=== PATIENT | female | born 1965 | race American Indian/Alaskan Native ===

== ENCOUNTER 2017-08-24 11:38 | Emergency (ER) | payer OTHER ==
[2017-08-24 11:49] VITALS: O2SAT 98
[2017-08-24 13:28] LABS: BASO % 0.2 % (0.0-2.0); EOS % 0.2 % (0.0-4.0); HEMATOCRIT 35.7 % (34.0-47.0); LYMPH # 0.4 K/uL (1.0-4.3); LYMPH % 9.8 % (20.0-40.0); MEAN CELL VOLUME 84.5 fL (81.0-99.0); MEAN CORPUSCULAR HEMOGLOBIN 27.6 pg (27.0-31.0); MEAN CORPUSCULAR HGB CONC 32.7 g/dL (33.0-37.0); MEAN PLATELET VOLUME 8.8 fL (7.2-11.7); MONO # 0.3 K/uL (0.0-0.8); MONO % 7.1 % (0.0-10.0); NRBC % 0.1 % (0.0-2.0); PLATELET COUNT 216 K/uL (130-400); RED CELL DISTRIBUTION WIDTH 13.2 % (11.5-14.5); WHITE BLOOD COUNT 4.4 K/uL (4.8-10.8)
[2017-08-24 13:43] LABS: ALKALINE PHOSPHATASE 71 U/L (38-126); ALT/SGPT 28 U/L (9-52); AST/SGOT 21 U/L (14-36); BILIRUBIN,TOTAL 0.7 mg/dL (0.2-1.3); BLOOD UREA NITROGEN 9 mg/dL (7-17); CALCIUM 8.5 mg/dl (8.6-10.4); CARBON DIOXIDE 26 mmol/L (22-30); CHLORIDE 100 mmol/L (98-107); GFR AFRICAN-AMERICAN > 60; GLUCOSE,RANDOM 63 mg/dL (65-105); POTASSIUM 3.6 mmol/L (3.6-5.2); SODIUM 133 mmol/L (132-148); TOTAL PROTEIN 8.4 g/dL (6.3-8.3)
[2017-08-24 13:51] LABS: NEUTROPHIL 79 % (50-75); TOTAL CELLS COUNTED 100
[2017-08-24 13:54] LABS: RBC URINE < 1 /hpf (0-3); URINE BACTERIA RARE (<OCC); URINE BILIRUBIN NEGATIVE (NEGATIVE); URINE BLOOD NEGATIVE (NEGATIVE); URINE COLOR Yellow (YELLOW); URINE GLUCOSE (UA) NORMAL (Normal); URINE KETONE NEGATIVE (NEGATIVE); URINE LEUKOCYTE ESTERASE TRACE Leu/uL (Negative); URINE PROTEIN NEGATIVE (NEGATIVE); URINE UROBILINOGEN NORMAL mg/dL (0.2-1.0); WBC URINE 3 /hpf (0-5)
--- NOTE | 2017-08-24 14:00 | C.PDOC ---
History Of Present Illness 52 y/o female with PMHx of Uterine Fibroid and Anemia presents to ED with complaints of abdominal pain since this morning. Patient notes she went to work and developed abdominal pain after drinking tea and eating papaya. Patient reports she had soft bowel movement but pain persisted. Reports history of similar symptoms when she had colitis. Patient reports nausea and denies vomiting, fever, chills or any other complaints at this time. Time Seen by Provider: 08/24/17 12:46 Chief Complaint (Nursing): Abdominal Pain History Per: Patient History/Exam Limitations: no limitations Onset/Duration Of Symptoms: Days Current Symptoms Are (Timing): Still Present Past Medical History Reviewed: Historical Data, Nursing Documentation, Vital Signs Vital Signs: Last Vital Signs Temp 98.2 F 08/24/17 18:07 Pulse 74 08/24/17 18:07 Resp 16 08/24/17 18:07 BP 114/68 08/24/17 18:07 Pulse Ox 98 08/24/17 18:07 - Medical History PMH: No Chronic Diseases Surgical History: No Surg Hx Family History: States: No Known Family Hx - Social History Hx Alcohol Use: Yes Hx Substance Use: No - Immunization History Hx Tetanus Toxoid Vaccination: Yes Hx Influenza Vaccination: No Hx Pneumococcal Vaccination: No Review Of Systems Constitutional: Negative for: Fever, Chills Gastrointestinal: Positive for: Nausea, Abdominal Pain. Negative for: Vomiting Musculoskeletal: Negative for: Back Pain Skin: Negative for: Rash Neurological: Negative for: Weakness, Numbness Physical Exam - Physical Exam Appears: Non-toxic, Other (uncomfortable) Skin: Normal Color, Warm, Dry, No Rash Head: Atraumatic, Normacephalic Eye(s): bilateral: Normal Inspection, EOMI Nose: Normal Oral Mucosa: Moist Neck: Supple Chest: Symmetrical Cardiovascular: Rhythm Regular Respiratory: Normal Breath Sounds, No Rales, No Rhonchi, No Wheezing Gastrointestinal/Abdominal: No Soft, Tenderness (Diffuse), Mass, Distention, No Guarding, No Rebound Back: No CVA Tenderness Neurological/Psych: Oriented x3 ED Course And Treatment - Laboratory Results Result Diagrams: 08/24/17 13:24 08/24/17 13:24 O2 Sat by Pulse Oximetry: 98 (RA) Pulse Ox Interpretation: Normal - Other Rad Obstructive series X-Ray: Viewed By Me, Read By Radiologist Interpretation: PROCEDURE: Radiographs of the chest and abdomen (obstructive series). HISTORY: Abdominal pain. COMPARISON: No prior. TECHNIQUE: AP radiograph of the chest, with upright and supine radiographs of the abdomen. FINDINGS: CHEST: Lungs: Clear. Cardiovascular: Normal size heart. No pulmonary vascular congestion. Pleura: No pleural fluid. No pneumothorax. Other findings: None. ABDOMEN AND PELVIS: Bowel: There is moderate amount of stool in the colon. No evidence of mechanical obstruction. Free air: None. Bones: Unremarkable. Other findings: None. IMPRESSION: Constipation. No evidence of mechanical bowel obstruction. Clear lungs. - CT Scan/US Abd/pelvis Other Rad Studies (CT/US): Read By Radiologist, Radiology Report Reviewed CT/US Interpretation: PROCEDURE: CT Abdomen and Pelvis with contrast. HISTORY : Abdominal pain. COMPARISON: None. TECHNIQUE: Contrast dose: 100 mL Omnipaque 350. Radiation dose: Total exam DLP = 569.12 mGy-cm. This CT exam was performed using one or more of the following dose reduction techniques: Automated exposure control, adjustment of the mA and/or kV according to patient size, and/or use of iterative reconstruction technique. FINDINGS: LOWER THORAX : The lung bases are clear. LIVER: The liver is normal in size and there is homogeneous enhancement. There are few scattered tiny low-attenuation lesions in the liver, too small to characterize by CT criteria. No intrahepatic biliary ductal dilatation. GALLBLADDER AND BILE DUCTS: There are no calcified gallstones. PANCREAS: The pancreas is normal in size and there is homogeneous enhancement without ductal dilatation or focal mass. SPLEEN: The spleen is normal in size and there is homogeneous enhancement. ADRENALS: No discrete nodule. KIDNEYS AND URETERS: Both kidneys are normal in size and there is homogeneous enhancement. There is a 6.1 x 4.4 cm simple cyst in the right kidney posteriorly. VASCULATURE: No aortic aneurysm. BOWEL: The small bowel loops are normal in caliber. There is moderate amount of stool scattered throughout the colon. No bowel obstruction. APPENDIX: Normal appendix. PERITONEUM: No free fluid. No free air. LYMPH NODES: No enlarged lymph nodes. BLADDER: Partially decompressed. REPRODUCTIVE: There is an anteverted enlarged fibroid uterus. There is a 10.8 x 13.8 x 20.5 cm hyperdense mass posterior to the uterus and anterior to the rectum resulting in mass effect on the posterior wall of the uterus and cervix. There is anterior displacement of the uterus and urinary bladder and posterior displacement of the rectum. BONES: No acute fracture. Within normal limits for the patient's age. OTHER FINDINGS: None. IMPRESSION: Large 10.8 x 13.8 x 20.5 cm pelvic mass extending to the lower abdomen between the uterus and rectum with resultant mass effect and anterior displacement of the uterus and cervix and posterior displacement of the rectum. Also noted is an enlarged fibroid uterus. The mass could represent a subserosal posterior wall degenerating fibroid however other pelvic masses including malignancy cannot be entirely excluded. Gynecologic consult is warranted. Progress Note: Toradol and Zofran ordered. CT scan abdomen ordered. On re- evaluation, patient is resting comfortably, abdomen remains soft, and patient is tolerating PO. Afebrile. Discussed with Dr Quijano, pts private surgeon, who reveiwed the results with pt and agreed upon discharge with outpt follow up. Case discussed and pt evaluated by Dr Stewart who evaluated results and discsused case with Dr Quijano, agreed upon plan and discharge. pt was instructed to return to ER if symptoms persist or worsen. Disposition - Disposition Disposition: HOME/ ROUTINE Disposition Time: 17:31 Condition: STABLE Additional Instructions: Follow up with your surgeon/ RESIDENTIAL [facility] doctor in 1-2 days. Return to ER if symptoms persist or worsen. Prescriptions: Psyllium Husk [Metamucil] 1.7 gm PO DAILY #1 powder traMADol [Ultram] 50 mg PO Q8 #14 tab Instructions: Uterine Fibroids (ED) Forms: [facility] (Divehi), Work Excuse - Clinical Impression Clinical Impression: Pelvic mass, Uterine fibroid - PA / FINISHING TRIMMER / Resident Statement MD/DO has reviewed & agrees with the documentation as recorded. - Scribe Statement The provider has reviewed the documentation as recorded by the Mohinder Valerio All medical record entries made by the Mohinder were at my direction and personally dictated by me. I have reviewed the chart and agree that the record accurately reflects my personal performance of the history, physical exam, medical decision making, and the department course for this patient. I have also personally directed, reviewed, and agree with the discharge instructions and disposition.
--- NOTE | 2017-08-24 14:22 | RAD ---
PROCEDURE: Radiographs of the chest and abdomen (obstructive series) HISTORY: Abdominal pain COMPARISON: No prior. TECHNIQUE: AP radiograph of the chest, with upright and supine radiographs of the abdomen. FINDINGS: CHEST: Lungs: Clear. Cardiovascular: Normal size heart. No pulmonary vascular congestion. Pleura: No pleural fluid. No pneumothorax. Other findings: None. ABDOMEN AND PELVIS: Bowel: There is moderate amount of stool in the colon. No evidence of mechanical obstruction. Free air: None. Bones: Unremarkable. Other findings: None. IMPRESSION: Constipation. No evidence of mechanical bowel obstruction. Clear lungs.
[2017-08-24] MEDS ORDERED: Dextrose 50% VIAL Inj (50 ml) IV ONE (14:30)
[2017-08-24] MEDS ORDERED: Dextrose 5%/0.9% NS 1,000 ML IV SCH (14:30)
[2017-08-24] MEDS ORDERED: Iohexol 350mg/ml 100 ML ONE (15:08)
--- NOTE | 2017-08-24 16:47 | CT ---
PROCEDURE: CT Abdomen and Pelvis with contrast HISTORY: Abdominal pain COMPARISON: None. TECHNIQUE: Contrast dose: 100 mL Omnipaque 350 Radiation dose: Total exam DLP = 569.12 mGy-cm. This CT exam was performed using one or more of the following dose reduction techniques: Automated exposure control, adjustment of the mA and/or kV according to patient size, and/or use of iterative reconstruction technique. FINDINGS: LOWER THORAX: The lung bases are clear. LIVER: The liver is normal in size and there is homogeneous enhancement. There are few scattered tiny low-attenuation lesions in the liver, too small to characterize by CT criteria. No intrahepatic biliary ductal dilatation. GALLBLADDER AND BILE DUCTS: There are no calcified gallstones. PANCREAS: The pancreas is normal in size and there is homogeneous enhancement without ductal dilatation or focal mass. SPLEEN: The spleen is normal in size and there is homogeneous enhancement. ADRENALS: No discrete nodule. KIDNEYS AND URETERS: Both kidneys are normal in size and there is homogeneous enhancement. There is a 6.1 x 4.4 cm simple cyst in the right kidney posteriorly. VASCULATURE: No aortic aneurysm. BOWEL: The small bowel loops are normal in caliber. There is moderate amount of stool scattered throughout the colon. No bowel obstruction. APPENDIX: Normal appendix. PERITONEUM: No free fluid. No free air. LYMPH NODES: No enlarged lymph nodes. BLADDER: Partially decompressed. REPRODUCTIVE: There is an anteverted enlarged fibroid uterus. There is a 10.8 x 13.8 x 20.5 cm hyperdense mass posterior to the uterus and anterior to the rectum resulting in mass effect on the posterior wall of the uterus and cervix. There is anterior displacement of the uterus and urinary bladder and posterior displacement of the rectum. BONES: No acute fracture. Within normal limits for the patient's age. OTHER FINDINGS: None. IMPRESSION: Large 10.8 x 13.8 x 20.5 cm pelvic mass extending to the lower abdomen between the uterus and rectum with resultant mass effect and anterior displacement of the uterus and cervix and posterior displacement of the rectum. Also noted is an enlarged fibroid uterus. The mass could represent a subserosal posterior wall degenerating fibroid however other pelvic masses including malignancy cannot be entirely excluded. Gynecologic consult is warranted.
[2017-08-24 18:08] VITALS: BP 114/68; PULSE 74; RESP 16; TEMP 98.2
== END 2017-08-24 18:07 | disposition home or self-care (01) ==
LOC: C.ER 11:38
DX: D25.9 Leiomyoma of uterus, unspecified (principal); R19.00 Intra-abdominal and pelvic swelling, mass and lump, unspecified site
CPT/HCPCS: 74022; 74177; 80053; 81001; 82948; 83690; 84703; 85025; 96374; 96375; 99285; J1885; J2405; Q9967